=== PATIENT | male | born 1990 | race Caucasian/White ===

== ENCOUNTER 2017-07-16 16:41 | Inpatient (IN) | payer SELFPAY ==
[~2017-07-16] VITALS: Ht 185.4 cm; Wt 64.1 kg
[2017-07-16 16:43] VITALS: BP 160/85
[2017-07-16] MEDS ORDERED: RELION NOVOL100 U/M1 IJ (16:49)
[2017-07-16 17:03] LABS: LYMPH # 1.9 K/mm3 (0.7-4.5); LYMPH % 24.2 % (10-50)
[2017-07-16 17:08] LABS: HEMOGLOBIN 18.9 g/dL (14.1-18.0)
--- NOTE | 2017-07-16 17:11 | Emergency Room Report ---
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 N Clinical Suspician of Infection? N Mental Status: 1 - Regular (Normal Baseline) Sepsis Risk:Low Sepsis Risk Have you (or family members/close friends) recently traveled outside the [place]? N If Yes, where/when: Have you had exposure to infectious disease within the past month? N TB? Other? Specify: 26 years old white male insulin-dependent diabetic for the past 10 years. He moved from [place] 2 months ago is primary care physician. He ran out of insulin for 2 days ago. Was unable to buy his insulin until tomorrow when he gets pain. 2 hours ago he developed tingling of the LEFT upper extremity. Sharp retrosternal chest pain and vomited twice. He came to the ED seems in no respiratory distress and his sugar is above 400. Source patient, RN notes reviewed, family Exam Limitations no limitations ALLERGIES Coded Allergies: No Known Allergies (07/16/17) Home Medications Reported Medications INSULIN REGULAR, HUMAN (Novolin R) 100 IJ TID History Medical History General CAD? No Angina: No [place]: No Hypertension? No Hyperlipidemia? No CHF? No DVT? No PE? No COPD? No Asthma? No Anemia? No GERD? No Gastric ulcers? No GI Bleed? No Hernia? No Thyroid Problems? No Hypothyroidism? No CVA? No Seizures? No Diabetes? Yes Insulin Dependent: Yes Insulin Pump: No Home FSBS? Yes End Stage Renal Disease? No UTI? No Stones? No BPH? No GB Disease: No Nephritic Syndrome? No Asplenia? No Hepatitis? No Sickle Cell Disease? No Arthritis? No Migraines? No Cataracts? No Glaucoma? No MRSA? No HIV? No TB? No Anxiety? No Depression? No Cancer? No Site: N More? No Immunization Hx DT/Tetanus Unknown Surgical Hx Previous Surgery?N Social History Smoking Hx Smoker: Current Every Day Smoker Tobacco: Yes Type Cigarettes Alcohol Alcohol: No Review of Systems All Other Systems Reviewed and Negative Constitutional no symptoms reported Eyes no symptoms reported ENT no symptoms reported. Respiratory no symptoms reported Cardiovascular see HPI, chest pain Gastrointestinal see HPI, vomiting Genitourinary no symptoms reported. Musculoskeletal no symptoms reported Skin no symptoms reported Psychiatric/Neurological no symptoms reported Physical Exam Vital Signs Vital Signs Date Time Temp Pulse Resp B/P Pulse O2 O2 Flow FiO2 Ox Delivery Rate 07/16 1825 104 18 131/70 98 07/16 1643 97.2 120 18 160/85 98 - WBC >12,000 or <4,000 or 10% bands? 2 or more SIRS Criteria Met? B/P:160/85 MAP:110 Creatinine >2.0? UA output<0.5ml/kg/hr for 2 hrs? Platelet count >100,000? Lactate >2.0mmol/1? INR >1.2 or PTT > than 60 sec? Evidence of Organ Dysfunction? Provider documented clinical suspician of infection? N Sepsis Criteria Count: 1 Sepsis Risk: Low Sepsis Risk General Appearance normal appearance, WD/WN Eye Exam - bilateral eye normal exam, bilateral eye PERRL, bilateral eye EOMI Ear, Nose, Throat hearing grossly normal, normal ENT inspection Neck normal inspection, non-tender, supple, full range of motion Respiratory Status Yes: trachea midline, chest symmetrical, non tender chest. No: respiratory distress. Lung Sounds bilateral: normal breath sounds, lungs clear. Cardiovascular no gallop, no JVD, no murmur, no rub, tachycardia Peripheral Pulses Pulses normal Yes Gastrointestinal normal bowel sounds, normal exam, non tender, soft, no organomegaly Neurologic alert, manager internal II-XII nml as tested, normal exam, oriented x 3 Reflexes Reflexes normal Yes Skin intact, normal color, warm/dry Lymphatic no adenopathy Medical Decision Making LABS/Meds/Orders Pt receiving controlled substance in ED? No Results/Orders Laboratory Tests 07/16/17 1720: ABG pH 7.13 *L, ABG pCO2 (Temp Corrct 21.8 L, ABG pO2 (Temp Correct 127.4 H, ABG HCO3 7.1 L, ABG Total CO2 7.8 L, ABG O2 Sat (Calculated) 97.7, ABG Base Excess -22.0 L, German Test ACCEPTABLE, Blood Gas Comments RIGHT RADIAL 07/16/17 1648: Magnesium 2.1 07/16/17 1648: Sodium 130 L, Potassium 5.0, Chloride 91 L, Carbon Dioxide 10 *L, BUN 22 H, Creatinine 1.4 H, Estimated Creat Clear 80, Estimated GFR (MDRD) 61, Glucose 457 H, Calcium 9.5, Total Bilirubin 1.1 H, AST 260 H, ALT 342 *H, Alkaline Phosphatase 123 H, Creatine Kinase 32 L, CK-MB (CK-2) Rel Index 1.6, CK and CKMB Interp < 0.5, Troponin I < 0.02, Total Protein 9.1 H, Albumin 5.1 H, Globulin 4.0 H, Albumin/Globulin Ratio 1.3, WBC 7.9, RBC 5.63, Hgb 18.9 *H, Hct 53.2 H, MCV 94.5, RDW 13.0, Plt Count 219, MPV 8.2, Gran % 69.0, Gran # 5.5, Lymphocytes % 24.2, Monocytes % 3.7, Eosinophils % 2.3, Basophils % 0.7, Lymphocytes # 1.9, Monocytes # 0.3, Eosinophils # 0.2, Basophils # 0.1, PUBS MCHC 35.5 H, MCH 33.5 H, Acetone Level Pending 07/16/17 1646: POC Glucose 447 *H Current Medication Orders Sig/Kendall Start time Last Medication Dose Route Stop Time Status Admin Ondansetron HCl 4 MG ONCE ONE 07/16 1700 DC 07/16 IV 07/16 1701 1659 Sodium Chloride 10 ML PRN PRN 07/16 1700 AC IV 07/17 1651 Sodium Chloride 1,000 ML .Q1H1M 07/16 1700 DC 07/16 IV 07/16 1800 1659 Sodium Chloride 10 ML PRN PRN 07/16 1700 AC IV 07/17 1658 Ondansetron HCl 0 .STK-MED ONE 07/16 1649 DC .ROUTE Sodium Chloride 1,000 ML .STK-MED ONE 07/16 1649 DC IV Orders Procedure Date/time Status ARTERIAL BLOOD GAS REQUEST 07/16 1706 Active ABD ACUTE(MUL VIEWS) 07/16 170 Active MAGNESIUM 07/16 170 Complete CHEST(2 VIEWS-NOT PORTABLE) 07/16 170 Active 12 LEAD EKG-BESSON (INITIAL) 07/16 165 Active ELECTROCARDIOGRAM REQUEST 07/16 1651 Active IV SALINE LOCK 07/16 1651 Active FSBS REQUEST BY CARE AREA 07/16 1651 Active CBC WITH AUTO DIFF 07/16 1651 Complete CARDIAC ENZYMES 07/16 1651 Active CHEM 12 PROFILE 07/16 1651 Active Acetone, Serum 07/16 1651 Active FINGERSTICK BLOOD SUGAR 07/16 1646 Complete CM/EKG CM/EKG EKG sinus tachycardia 123/minures, lucille no acute findings. XRAY/CT/US XRAY/CT/US XRAY chest, abdomen XR interpretation by reviewed by me Comment NAD Departure Departure Time of Disposition 1825 Disposition Still a Patient Clinical Impression Primary Impression: Insulin dependent diabetes mellitus Secondary Impressions: Non-compliance, Vomiting Condition STABLE Referrals Ambrose MALONE,[place] Additional Instructions the patietn felt better abd strated urinating. He was found to be in DKA and he agreed for admssion. I called Dr Melton who agreed to admit. He started on insulin drip 6 u / hour and admitted in a stable condition. Dr. Chaves Discharge Counseling Counseled pt/family regarding diagnosis, test results, medications/RX ED Critical Care Critical Care No If Critical Care minutes are documented, the time involved in the performance of seperately reportable procedures was not counted toward critical care time documented. I directly delivered medical care to this critically ill and/or injured patient. Timely evaluation and treatment was necessary to address the significant organ system(s) dysfunction present in this patient. at 1825
[2017-07-16 17:24] LABS: BUN 22 mg/dL (7-18)
[2017-07-16 17:27] LABS: GFR (ESTIMATED) 61 ML/MIN (>60)
[2017-07-16 17:28] LABS: ARTERIAL PO2 127.4 MMHG (80-100); ARTERIAL TCO2 7.8 MMOL/L (23-27)
[2017-07-16 17:29] LABS: ALLEN'S TEST ACCEPTABLE; OXYGEN ROOM AIR
--- NOTE | 2017-07-16 19:08 | RADIOLOGY REPORT PS360 ---
ABD ACUTE(MUL VIEWS) HISTORY: Nausea and vomiting nv ORDERING PHYSICIAN: Jossie Chaves MD PATIENT AGE: 26 years COMPARISON: None FINDINGS: Frontal view of the chest shows no acute finding. Two-view abdomen shows a mild amount retained colonic feces. No intestinal obstruction or free air. IMPRESSION: Mild constipation
--- NOTE | 2017-07-16 19:09 | RADIOLOGY REPORT PS360 ---
CHEST(2 VIEWS-NOT PORTABLE) HISTORY: CHEST PAIN ORDERING PHYSICIAN: Jossie Chaves MD PATIENT AGE: 26 years COMPARISON: None available FINDINGS: The cardiomediastinal silhouette and pulmonary vascularity are within normal limits. The lungs are clear without infiltrates, suspicious nodules, or pleural effusions. No acute bony abnormalities. IMPRESSION: Negative chest, no acute finding
--- NOTE | 2017-07-16 20:45 | HISTORY AND PHYSICAL REPORT ---
History and Physical ([facility]) Date of admission: 07/16/17 Chief complaint: High blood sugar, DKA History: History of Present Illness: This 26-year-old white male diabetic has moved to [place] from [place] and has been here a little over 2 months. He is diabetic and takes insulin. He has not developed a relationship with a physician since moving here. He has been buying insulin [id number]. But he has been out now for several days. He was feeling badly today. He became weak in the knees. He started vomiting. He presented in the emergency room where his blood sugar is elevated over 100 and his pH is quite acidotic at 7.14. He is admitted with a diagnosis of DKA. He normally takes NovoLog 14 and counts carbs to determine his dose. His dose may be between 10 and 20 usually. He has been diabetic for 11 years. He is otherwise healthy. 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 His drug of choice was prescription opioids. He has started and also injected. Past Medical History: Medical History: CAD? No Angina: No [place]: No Hypertension? No Hyperlipidemia? No CHF? No DVT? No PE? No COPD? No Asthma? No Anemia? No GERD? No Gastric ulcers? No GI Bleed? No Hernia? No Thyroid Problems? No Hypothyroidism? No CVA? No Seizures? No Diabetes? Yes Insulin Dependent: Yes Insulin Pump: No Home FSBS? Yes UTI? No Stones? No BPH? No GB Disease: No Nephritic Syndrome? No Asplenia? No Hepatitis? No Sickle Cell Disease? No Arthritis? No Migraines? No Cataracts? No Glaucoma? No MRSA? No HIV? No TB? No Anxiety? No Depression? No Cancer? No Site: N More? No Additional medical history: He states he has never been hospitalized. Surgical history: Previous Surgery?N Medications: Reported Medications INSULIN REGULAR, HUMAN (Novolin R) 100 IJ TID Allergies: Coded Allergies: No Known Allergies (07/16/17) Family History: Family history: Postive for: CAD, DM. Additional family history: His father had diabetes and of heart disease. His paternal grandfather and paternal grandmother both had diabetes. Patient has a brother who is healthy and in the . Patient's is disabled from back and leg problems. He has 2 stepsons 8 and 9 years old. Social History: Smoking Hx Tobacco: Yes Smoker: Current Every Day Smoker Type: Cigarettes Packs/day: < 1 Pack Are you exposed to second hand Yes Alcohol: Alcohol: Yes (occasional beer) How much do you drink Less Than One Drink A Day For how long Longer Than 5 Years When was your last drink Greater Than 72 Hours Ago Hx of Drug Use: Drug Use? Yes Drug(s) of Choice: opioids, clean over the past 5 years he states. 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 He was working for [employer] in [place]. He works at [email or web address] now. Review of Systems: Patient unresponsive? No Constitutional Positive for: weak. No: chills, fatigue, lethargy, malaise, recent weight loss. ENT No: ear ache, nose bleed, ear drainage, hearing loss, mouth pain, nasal congestion, ear ringing, sinus problems, sore throat, throat swelling, tongue pain, tongue swelling, toothache, voice change. Cardiovascular No: GROSS, PND, chest pain, edema, orthopnea, palpitations. Respiratory No: dyspnea on exertion, PND, shortness of air, hemoptysis, non-productive, pleurisy, pleuritic pain, pneumonia, productive cough (sputum), wheezing. GI Positive for: nausea, vomitting. No: GERD, abdominal pain, anorexia, constipation, diarrhea, dysphagia, hematemeis, hematochezia, hernia, melena, rectal pain. Skin No: bruising. Neurological Positive for: weakness. No: change in LOC, bladder dysfunction, bowel dysfunction, confusion, dizziness, gait problem, headache, light headed, numbness, seizure, slurred speech, unable to speak, spinning sensation, syncope, vision change. Immune/allergy No: allergy. Eyes No: blurry vision, diploplia, discharge, itching, vision loss, eye pain, photophobia, redness, swelling. Musculoskeletal No: arterial, extremity pain, extremity swelling, joint pain, joint swelling, lumbar pain, myalgias, neck pain, thoracic pain. Heme No: bruising. Endocrine No: polydipsia (denies). Psychiatric No: agitation, anxious, auditory hallucinations, confused, delusional, depression, homicidal ideation, hostile, insomnia, change in mental status, stress, suicidal ideation, visual hallucination. Additional information: denies polyuria Physical Exam: Vital signs: 1ST Vital Signs Result Date Time Pulse Ox 98 07/16 1643 B/P 160/85 07/16 1643 Temp 97.2 07/16 1643 Pulse 120 07/16 1643 Resp 18 07/16 1643 Exam: General appearance: alert, no acute distress Eyes: PERRLA, conjunctival injection ENT: dry mucous membranes (lips are dry) Cardiovascular: tachycardia Respiratory: aerating well, clear to auscultation, no respiratory distress ABD: soft, no tenderness, no guarding, no organomegaly Genitourinary: normal voiding & quantity (he states) Extremities: normal exam, no peripheral edema, some bruising of the lower extremities and I suspect old track ackerman Musculoskeletal: equal muscle strength Skin: dry, intact, normal color Neuro: alert, no deficit, oriented, speech clear Lab data: Labs: Laboratory Tests 07/16/17 2015: Sodium 132 L, Potassium 5.0, Chloride 95 L, Carbon Dioxide 11 L, BUN 22 H, Creatinine 1.4 H, Estimated Creat Clear 80, Estimated GFR (MDRD) 61, Glucose 305 H, Calcium 8.7, Phosphorus 3.8, Magnesium 2.2 07/16/17 1720: ABG pH 7.13 *L, ABG pCO2 (Temp Corrct 21.8 L, ABG pO2 (Temp Correct 127.4 H, ABG HCO3 7.1 L, ABG Total CO2 7.8 L, ABG O2 Sat (Calculated) 97.7, ABG Base Excess -22.0 L, German Test ACCEPTABLE, Blood Gas Comments RIGHT RADIAL 07/16/171647: Magnesium 2.1 07/16/171647: Sodium 130 L, Potassium 5.0, Chloride 91 L, Carbon Dioxide 10 *L, BUN 22 H, Creatinine 1.4 H, Estimated Creat Clear 80, Estimated GFR (MDRD) 61, Glucose 457 H, Calcium 9.5, Total Bilirubin 1.1 H, AST 260 H, ALT 342 *H, Alkaline Phosphatase 123 H, Creatine Kinase 32 L, CK-MB (CK-2) Rel Index 1.6, CK and CKMB Interp < 0.5, Troponin I < 0.02, Total Protein 9.1 H, Albumin 5.1 H, Globulin 4.0 H, Albumin/Globulin Ratio 1.3, WBC 7.9, RBC 5.63, Hgb 18.9 *H, Hct 53.2 H, MCV 94.5, RDW 13.0, Plt Count 219, MPV 8.2, Gran % 69.0, Gran # 5.5, Lymphocytes % 24.2, Monocytes % 3.7, Eosinophils % 2.3, Basophils % 0.7, Lymphocytes # 1.9, Monocytes # 0.3, Eosinophils # 0.2, Basophils # 0.1, PUBS MCHC 35.5 H, MCH 33.5 H, Acetone Level MODERATE 07/16/17 1646: POC Glucose 447 *H Diagnosis(es): 1. Diabetic ketoacidosis 2. Vomiting 3. Non-compliance 4. Insulin dependent diabetes mellitus 5. History of drug abuse in remission Plan: Insulin drip instituted. Follow electrolytes. IV fluids. at 2045
[2017-07-16 21:59] VITALS: BP 137/83
[2017-07-16 22:00] VITALS: BP 137/83
[2017-07-17] VITALS (12 sets, daily range): BP systolic 103–148; BP diastolic 58–86
--- NOTE | 2017-07-17 07:46 | PHARMACY CLINIC NOTE ---
Patient Demographics Patient Demographics Admission date: 07/16/17 Date: 07/17/17 Time: 0745 Allergies Coded Allergies: No Known Drug Allergies (-- 07/16/17) HEIGHT- FT: 6 IN: 1.00 K.127 VTE General Information Labs: Laboratory Tests 07/16 1648 Hematology Hgb (14.1 - 18.0 g/dL) 18.9 *H Hct (42.0 - 52.0 %) 53.2 H Plt Count (142 - 424 K/mm3) 219 Disclaimer The following section includes nursing documentation that has been pulled in for pharmacy review. Patient's VTE score: 3 Patient's VTE Risk: LOW RISK Clinical trial participant? No VTE prophylaxis [id number] VTE prophylaxis ordered? Yes Type of prophylaxis/treatment: SHIVAM at 0745
--- NOTE | 2017-07-17 08:54 | ACUTE CARE PROGRESS NOTE (QUA) ---
Progress Notes Subjective Date 07/17/17 Time 0805 Note Pt resting quietly with family at bedside. He reports headache and some abdominal discomfort. He has been up to void once, denies BM. Objective Findings Laboratory Tests 07/17/17 0605: Sodium 133 L, Potassium 4.2, Chloride 99, Carbon Dioxide 16 L, BUN 18, Creatinine 1.3, Estimated Creat Clear 78, Estimated GFR (MDRD) 67, Glucose 126 H, Calcium 8.3 L, Acetone Level SMALL 07/16/17 2354: POC Glucose 91 07/16/17 2320: Sodium 134 L, Potassium 4.1, Chloride 99, Carbon Dioxide 16 L, BUN 20 H, Creatinine 1.2, Estimated Creat Clear 83, Estimated GFR (MDRD) 73, Glucose 84, Calcium 8.5 07/16/17 2300: POC Glucose 93 07/16/172203: POC Glucose 142 H 07/16/172014: Sodium 132 L, Potassium 5.0, Chloride 95 L, Carbon Dioxide 11 L, BUN 22 H, Creatinine 1.4 H, Estimated Creat Clear 80, Estimated GFR (MDRD) 61, Glucose 305 H, Calcium 8.7, Phosphorus 3.8, Magnesium 2.2 07/16/17 1720: ABG pH 7.13 *L, ABG pCO2 (Temp Corrct 21.8 L, ABG pO2 (Temp Correct 127.4 H, ABG HCO3 7.1 L, ABG Total CO2 7.8 L, ABG O2 Sat (Calculated) 97.7, ABG Base Excess -22.0 L, German Test ACCEPTABLE, Blood Gas Comments RIGHT RADIAL 07/16/17 1648: Magnesium 2.1 07/16/17 1648: Sodium 130 L, Potassium 5.0, Chloride 91 L, Carbon Dioxide 10 *L, BUN 22 H, Creatinine 1.4 H, Estimated Creat Clear 80, Estimated GFR (MDRD) 61, Glucose 457 H, Calcium 9.5, Total Bilirubin 1.1 H, AST 260 H, ALT 342 *H, Alkaline Phosphatase 123 H, Creatine Kinase 32 L, CK-MB (CK-2) Rel Index 1.6, CK and CKMB Interp < 0.5, Troponin I < 0.02, Total Protein 9.1 H, Albumin 5.1 H, Globulin 4.0 H, Albumin/Globulin Ratio 1.3, WBC 7.9, RBC 5.63, Hgb 18.9 *H, Hct 53.2 H, MCV 94.5, RDW 13.0, Plt Count 219, MPV 8.2, Gran % 69.0, Gran # 5.5, Lymphocytes % 24.2, Monocytes % 3.7, Eosinophils % 2.3, Basophils % 0.7, Lymphocytes # 1.9, Monocytes # 0.3, Eosinophils # 0.2, Basophils # 0.1, PUBS MCHC 35.5 H, MCH 33.5 H, Acetone Level MODERATE 07/16/17 1646: POC Glucose 447 *H Vital Signs Date Time Temp Pulse Resp B/P Pulse O2 O2 Flow FiO2 Ox Delivery Rate 07/17 0600 98.0 103 19 124/79 98 ROOM AIR 07/17 0408 109 17 103/60 97 07/17 0400 109 16 103/60 97 ROOM AIR 07/17 0200 97.0 112 16 113/86 98 07/17 0200 112 16 113/86 98 ROOM AIR 07/17 0100 97.0 105 16 122/74 98 ROOM AIR 07/16 2200 108 07/16 2200 97.8 108 16 137/83 07/16 2200 100 ROOM AIR 07/16 2159 97.8 108 16 137/83 100 ROOM AIR 07/16 2118 97.2 104 18 131/70 98 07/16 2117 97.2 104 18 131/70 98 07/16 1825 104 18 131/70 98 07/16 1643 97.2 120 18 160/85 98 Last VS-Temp:98.0 B/P:124/79 Pulse:103 Resp:19 SaO2:98 ROOM AIR Last weight lbs:141 oz:6 K.127 Method:Bed Scales Exam General appearance: alert, awake, no acute distress Cardiovascular: regular rate & rhythm, normal peripheral pulses Respiratory: CTAB A&P ABD: non-distended, no rebound, soft, no tenderness, no guarding, no organomegaly, no palpable mass, bowel sounds present Extremities: moves all, no peripheral edema, warm, no calf tenderness Neuro: alert, oriented, speech clear, no focal deficit Reviewed: medications, vital signs, lab results, nursing notes Assessment/Plan Problem List 1. Diabetic ketoacidosis 2. Vomiting 3. Non-compliance 4. Insulin dependent diabetes mellitus 5. History of drug abuse in remission Patient condition Improving Plan: Further per Dr. Avendano. This inpt stay is expected to cross 2 MNs from start of care Yes (ROMIE DAVIS APRN) Assessment/Plan Problem List 1. Diabetic ketoacidosis 2. Vomiting 3. Non-compliance 4. Insulin dependent diabetes mellitus 5. History of drug abuse in remission Comments: Patient seen and agree with above note, will attempt to take some clear liquids this mooring, should be able to change to subcutaneous insulin soon. (Kun Avendano MD) at 0853 at 0902
[2017-07-18 04:55] VITALS: BP 123/72
[2017-07-18 07:48] VITALS: BP 124/82
[2017-07-18 07:48] LABS: LYMPH # 1.6 K/mm3 (0.7-4.5); LYMPH % 34.6 % (10-50)
[2017-07-18 08:14] LABS: HEMOGLOBIN 14.3 g/dL (14.1-18.0)
--- NOTE | 2017-07-18 08:35 | ACUTE CARE PROGRESS NOTE (QUA) ---
Progress Notes Subjective Date 07/18/17 Time 0832 Note Patient feels much better, tolerating a regular diet. Objective Findings Laboratory Tests 07/18/17 0630: POC Glucose 293 H 07/18/17 0622: Sodium 135 L, Potassium 3.8, Chloride 101, Carbon Dioxide 23, BUN 18, Creatinine 1.0, Estimated Creat Clear 102, Estimated GFR (MDRD) 90, Glucose 311 H, Calcium 8.1 L, WBC 4.6 L, RBC 4.25 L, Hgb 14.3, Hct 39.5 L, MCV 93.0, RDW 13.0, Plt Count 143, MPV 7.8, Gran % 55.0, Gran # 2.5, Lymphocytes % 34.6, Monocytes % 6.8, Eosinophils % 3.1, Basophils % 0.4, Lymphocytes # 1.6, Monocytes # 0.3, Eosinophils # 0.1, Basophils # 0.0, PUBS MCHC 36.1 H, MCH 33.5 H 07/17/17 2044: POC Glucose 374 *H 07/17/17 1637: POC Glucose 366 *H 07/17/17 1303: POC Glucose 266 H 07/17/17 1205: POC Glucose 240 H 07/17/17 1111: POC Glucose 144 H 07/17/17 1015: POC Glucose 161 H 07/17/17 0902: POC Glucose 142 H Vital Signs Date Time Temp Pulse Resp B/P Pulse O2 O2 Flow FiO2 Ox Delivery Rate 07/18 0748 98.6 93 18 124/82 99 ROOM AIR 07/18 0455 97.8 87 16 123/72 99 ROOM AIR 07/17 2053 98.0 96 16 129/75 100 07/17 1600 98.0 96 16 129/75 100 ROOM AIR 07/17 1400 98.1 85 18 148/83 98 ROOM AIR 07/17 1200 98.0 94 18 116/58 98 ROOM AIR 07/17 1030 98.1 101 19 124/78 98 07/17 1000 98.3 96 18 124/78 98 ROOM AIR I&O Past 24 Hrs-ending at 0700 07/18 0700 Intake Total 3500 Output Total 600 Balance 2900 Last VS-Temp:98.6 B/P:124/82 Pulse:93 Resp:18 SaO2:99 ROOM AIR Last weight lbs:141 oz:6 K.127 Method:Bed Scales Exam General appearance: alert, awake, no acute distress Cardiovascular: regular rate & rhythm Respiratory: clear to auscultation ABD: normal bowel sounds, soft, no tenderness Extremities: no peripheral edema Assessment/Plan Problem List 1. Diabetic ketoacidosis Status: Resolved 2. Vomiting Status: Resolved 3. Non-compliance 4. Insulin dependent diabetes mellitus 5. History of drug abuse in remission This inpt stay is expected to cross 2 MNs from start of care Yes Comments: Plan discharge home today. Discussed patient using Relion N and R insulin instead of Lantus and NovoLog due to cost. Patient will f/u with Dr. Melton in 2 weeks. at 0835
[2017-07-18] MEDS ORDERED: RELION NOVOL100 U/ML SC (08:37)
[2017-07-18 11:00] VITALS: BP 124/82
--- NOTE | 2017-07-18 13:20 | DISCHARGE SUMMARY STANDARD ---
Discharge Summary ([facility]2) Date of admission: 07/16/17 Date of discharge: 07/18/17 Problem List: 1. Diabetic ketoacidosis 2. Vomiting 3. Non-compliance 4. Insulin dependent diabetes mellitus 5. History of drug abuse in remission History of present illness: Mr Bennett is a 26-year-old white male diabetic who moved to [place] from [place] and has been here a little over 2 months. He is diabetic and takes insulin. He has not developed a relationship with a physician since moving here. He has been buying insulin [id number] but has been out now for several days. He was feeling badly the day of admission. He became weak in the knees. He started vomiting. He presented in the emergency room where his blood sugar was elevated and ABG's showed a pH quite acidotic at 7.14. He was admitted with a diagnosis of DKA. Patient stated that he normally takes NovoLog 14 and counts carbs to determine his dose. His dose may be between 10 and 20; has been diabetic for 11 years and is otherwise healthy; and has a past history of drug abuse but has been clean for 5 years. Hospital Course: Patient was started on Insulin gtt on admission. Labs were monitored as documented. When BS improved he was changed to Lantus and sliding scale insulin. He received Zofran for nausea. Symptoms improved and diet was advanced to diabetic diet which he tolerated well. By patient was feeling better and he was discharged. Laboratory data this visit: 07/16/17 2015: Sodium 132 L, Potassium 5.0, Chloride 95 L, Carbon Dioxide 11 L, BUN 22 H, Creatinine 1.4 H, Estimated Creat Clear 80, Estimated GFR (MDRD) 61, Glucose 305 H, Calcium 8.7, Phosphorus 3.8, Magnesium 2.2 07/16/17 1720: ABG pH 7.13 *L, ABG pCO2 (Temp Corrct 21.8 L, ABG pO2 (Temp Correct 127.4 H, ABG HCO3 7.1 L, ABG Total CO2 7.8 L, ABG O2 Sat (Calculated) 97.7, ABG Base Excess -22.0 L, German Test ACCEPTABLE, Blood Gas Comments RIGHT RADIAL 07/16/17 1648: Magnesium 2.1 07/16/17 1648: Sodium 130 L, Potassium 5.0, Chloride 91 L, Carbon Dioxide 10 *L, BUN 22 H, Creatinine 1.4 H, Estimated Creat Clear 80, Estimated GFR (MDRD) 61, Glucose 457 H, Calcium 9.5, Total Bilirubin 1.1 H, AST 260 H, ALT 342 *H, Alkaline Phosphatase 123 H, Creatine Kinase 32 L, CK-MB (CK-2) Rel Index 1.6, CK and CKMB Interp < 0.5, Troponin I < 0.02, Total Protein 9.1 H, Albumin 5.1 H, Globulin 4.0 H, Albumin/Globulin Ratio 1.3, WBC 7.9, RBC 5.63, Hgb 18.9 *H, Hct 53.2 H, MCV 94.5, RDW 13.0, Plt Count 219, MPV 8.2, Gran % 69.0, Gran # 5.5, Lymphocytes % 24.2, Monocytes % 3.7, Eosinophils % 2.3, Basophils % 0.7, Lymphocytes # 1.9, Monocytes # 0.3, Eosinophils # 0.2, Basophils # 0.1, PUBS MCHC 35.5 H, MCH 33.5 H, Acetone Level MODERATE 07/16/17 1646: POC Glucose 447 *H 07/17/17 0605: Sodium 133 L, Potassium 4.2, Chloride 99, Carbon Dioxide 16 L, BUN 18, Creatinine 1.3, Estimated Creat Clear 78, Estimated GFR (MDRD) 67, Glucose 126 H, Calcium 8.3 L, Acetone Level SMALL 07/18/17 0622: Sodium 135 L, Potassium 3.8, Chloride 101, Carbon Dioxide 23, BUN 18, Creatinine 1.0, Estimated Creat Clear 102, Estimated GFR (MDRD) 90, Glucose 311 H, Calcium 8.1 L, WBC 4.6 L, RBC 4.25 L, Hgb 14.3, Hct 39.5 L, MCV 93.0, RDW 13.0, Plt Count 143, MPV 7.8, Gran % 55.0, Gran # 2.5, Lymphocytes % 34.6, Monocytes % 6.8, Eosinophils % 3.1, Basophils % 0.4, Lymphocytes # 1.6, Monocytes # 0.3, Eosinophils # 0.1, Basophils # 0.0, PUBS MCHC 36.1 H, MCH 33.5 H Imagin07/16/17 CXR IMPRESSION: Negative chest, no acute finding 07/16/17 Abdominal IMPRESSION: Mild constipation Discharge medications: Continue taking these medications: INSULIN REGULAR, HUMAN (Novolin R) 100 UNIT/ML VIAL 100 INJECTION THREE TIMES A DAY Start taking the following new medications: INSULIN NPH HUMAN ISOPHANE (Novolin N) 100 UNIT/ML VIAL 20 UNITS Subcutaneous Injection EVERY 12 HOURS (0900/2100) Qty = 1 No Refills Disposition: Patient was discharged to home in stable and satisfactory condition. Follow up: [address] Melton Activity: Cont Current activity Diet: Continue same diet Discharge to: HOME Agency needed? N Dr. Avendano discussed with patient using N and R insulin instead of Lantus and NovoLog due to cost. at 1320
== END 2017-07-18 11:05 | disposition home or self-care (01) | DRG 639 ==
LOC: ER 16:41 → 2ND 18:28
PROVIDERS: Emergency Medicine; Family Medicine
DX: E13.10 Other specified diabetes mellitus with ketoacidosis without coma (principal); Z91.128 Patient's intentional underdosing of medication regimen for other reason; Z79.4 Long term (current) use of insulin; T38.3X6A Underdosing of insulin and oral hypoglycemic [antidiabetic] drugs, initial encounter
CPT/HCPCS: J2405